=== PATIENT | male | born 1945 | race Caucasian/White ===

== ENCOUNTER 2018-09-07 10:26 | Emergency (ER) | payer MEDICARE, BC ==
[~2018-09-07] VITALS: Ht 165.1 cm; Wt 90.0 kg
[2018-09-07 10:32] VITALS: BP 135/73
[2018-09-07] MEDS ORDERED: MUPI22OI30 TOP (12:38)
== END 2018-09-07 12:43 | disposition home or self-care (01) ==
LOC: ER 10:27
DX: S90.562A Insect bite (nonvenomous), left ankle, initial encounter (principal); Z79.899 Other long term (current) drug therapy; W57.XXXA Bitten or stung by nonvenomous insect and other nonvenomous arthropods, initial encounter; Y93.89 Activity, other specified; Y92.89 Other specified places as the place of occurrence of the external cause; Y99.8 Other external cause status
CPT/HCPCS: 99283